=== PATIENT | male | born 1980 | race Caucasian/White ===

== ENCOUNTER 2016-09-28 22:01 | Emergency (ER) | payer OTHER ==
[~2016-09-28] VITALS: Ht 175.3 cm; Wt 79.0 kg
[2016-09-28 22:05] VITALS: TEMP 36.8; Ht 175.3 cm; Wt 79.0 kg
[2016-09-28 22:16] VITALS: O2SAT 98
--- NOTE | 2016-09-28 22:42 | DIAGNOSTIC IMAGING REPORT ---
CHEST ONE VIEW PORTABLE HISTORY: Atypical chest pain. Short of breath. COMPARISON: None. FINDINGS: The lungs are clear. Cardiac silhouette is normal in size. No pleural effusions. No pneumothorax. IMPRESSION: No acute process. Electronically signed by: Rashid Diaz M.D. 09/28/2016 10:41 PM Dictated Date/Time: 09/28/2016 10:40 PM
[2016-09-28 22:43] LABS: HEMATOCRIT 45.8 % (42-52); MEAN CELL VOLUME 90.7 fL (80-100); MEAN CORPUSCULAR HEMOGLOBIN 33.5 pg (25-34); MEAN CORPUSCULAR HGB CONC 36.9 g/dl (32-36); MEAN PLATELET VOLUME 10.9 fL (7.4-10.4); PLATELET COUNT 235 K/uL (130-400); RED BLOOD COUNT 5.05 M/uL (4.7-6.1); WHITE BLOOD COUNT 8.77 K/uL (4.8-10.8)
[2016-09-28] MEDS ORDERED: OPTIRAY 320 IV PRN (22:45)
[2016-09-28 22:50] LABS: ISTAT HEMOGLOBIN 16.3 g/dl (14.0-18.0); ISTAT IONIZED CALCIUM 1.19 mmol/l (1.12-1.32)
[2016-09-28 22:55] LABS: INR 1.1 (0.9-1.1); PARTIAL THROMBOPLASTIN RATIO 1.1; PROTHROMBIN TIME (PATIENT) 11.5 SECONDS (9.0-12.0)
[2016-09-28 23:15] LABS: ALB/GLOB RATIO 1.3 (0.9-2); BUN/CREATININE RATIO 9.5 (10-20); CALCIUM 8.8 mg/dl (8.5-10.1); CKMB/CK RATIO 0.5 (0-3.0); CREATININE 1.1 mg/dl (0.60-1.40); POTASSIUM 3.8 mmol/L (3.5-5.1)
[2016-09-29 01:33] VITALS: BP 126/80; PULSE 52; O2SAT 98
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
--- NOTE | 2016-09-29 07:07 | DIAGNOSTIC IMAGING REPORT ---
CHEST COMBO ANGIO DISSECTION CLINICAL HISTORY: Left-sided chest pain. COMPARISON STUDY: Chest radiograph September 28, 2016. TECHNIQUE: Unenhanced and arterial phase imaging of the chest was performed. Injection 117 cc of Optiray 320 IV was uneventful. Sagittal and coronal reconstructed reviewed as well as maximal intensity projections on an independent 3-D workstation. FINDINGS: The caliber of the thoracic aorta is normal. There is no evidence of intramural hematoma or thoracic aortic dissection. No pulmonary emboli are identified. The size of the heart is normal. There is trace pericardial fluid with no significant pericardial effusion. Central airways are patent. There is no consolidation. No pneumothorax or pleural effusion is present. No enlarged axillary, mediastinal or hilar lymph nodes are present. Bony thorax and upper abdomen are unremarkable. IMPRESSION: 1. No thoracic aortic dissection. 2. No acute intrathoracic findings. Electronically signed by: Óscar Jj M.D. 09/29/2016 7:06 AM Dictated Date/Time: 09/29/2016 6:58 AM
== END 2016-09-29 01:34 | disposition home or self-care (01) ==
LOC: C.EDB 22:03 → C.ED 09-29 01:34
DX: R07.2 Precordial pain (principal); R07.89 Other chest pain; R06.02 Shortness of breath; I45.6 Pre-excitation syndrome; R01.1 Cardiac murmur, unspecified; B19.20 Unspecified viral hepatitis C without hepatic coma